=== PATIENT | male | born 1960 | race African-American/Black ===

== ENCOUNTER 2020-04-05 12:16 | Emergency (ER) | payer SELFPAY ==
[2020-04-05 12:31] VITALS: BP 151/85; PULSE 69; RESP 18; TEMP 36.4; O2SAT 100; BMI 22.2
--- NOTE | 2020-04-05 12:34 | W.ED.DIZZY ---
HPI - Dizziness General: Chief Complaint: General Medical Stated Complaint: possible heat stroke Time Seen by Provider: 04/05/20 12:31 Source: patient Mode of arrival: ambulatory Limitations: no limitations History of Present Illness: HPI Narrative: 59-year-old male who states he has been outside working all week weed eating. He states he feels like he got overheated. He states that he has had muscle aches and weakness and dizziness over the last 2 days. He denies any vomiting. He denies any worsening or improving factors. Associated symptoms: Denies chest pain, chills, headache(s), nausea or vomiting Review of Systems Const: Denies: fever(s), chills, body aches or change in appetite Eyes: Denies: blurry vision or eye discomfort ENMT: Denies: throat pain or dental pain Card: Denies: chest pain Resp: Denies: dyspnea GI: Denies: abdominal pain, nausea, vomiting or diarrhea : Denies: dysuria Musc: Reports: joint pain Skin/Breast: Denies: rash Neuro: Denies: headache(s) Psych: Denies: depression Joaquín/Lymph: Denies: easy bruising All/Imm: Denies: urticaria Physical Exam Const: COMMON NORMALS: no acute distress, patient oriented x3 and healthy appearing HENMT: COMMON NORMALS: normocephalic and atraumatic HEAD & SCALP: normocephalic and atraumatic Eye: COMMON NORMALS: Equal, round and reactive pupils present and EOMs intact bilaterally PUPIL: Yes Equal, round and reactive pupils present Neck/C-Spine: COMMON NORMALS: full ROM and supple Chest: COMMONS NORMALS: normal inspection of the chest and normal palpation of entire chest wall Resp: COMMON NORMALS: normal respiratory effort, No retractions, No use of accessory muscles and clear to auscultation bilaterally AUSCULTATION: clear to auscultation bilaterally Cardio: COMMON NORMALS: regular rate, regular rhythm and No murmurs present (Cardio) RATE: regular rate RHYTHM: regular rhythm GI: COMMON NORMALS: Normal to inspection, nondistended, normoactive bowel sounds present, Soft to palpation, non-tender and no masses PALPATION: Yes Soft to palpation Extremity: COMMON NORMALS: normal to inspection and full ROM Neuro: COMMON NORMALS: patient oriented x3, moves all extremities and no focal motor deficits Psych: COMMON NORMALS: mental status grossly normal, Normal thought process present and cooperative THOUGHT PROCESS: Normal thought process present Skin: COMMON NORMALS: no rashes or lesions noted and no wounds GENERAL SKIN EXAM: no rashes or lesions noted MDM - Dizziness MDM Narrative: Medical decision making narrative: Patient presents here with heat exposure. When nurse went in to the patient's room and to start his IV he refused IV and refused blood draw. She try to explain to him that we had a treated with IV fluids. Patient got upset and left. I was unable to talk to him again before he left. Discharge Plan Discharge Patient Disposition: Home Clinical Impression: Heat exposure Condition: Stable Coding Level of Care Code ED Home Hospice Rn for Wesley You
== END 2020-04-05 13:03 | disposition left against medical advice (07) ==
PROVIDERS: Emergency Provider Emergency Medicine
DX: T67.9XXA Effect of heat and light, unspecified, initial encounter (principal)
CPT/HCPCS: 12345; 96360; 99281; 99283

== ENCOUNTER 2020-07-25 18:18 | Emergency (ER) | payer SELFPAY ==
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
[2020-07-25 18:28] VITALS: BP 150/90; PULSE 83; RESP 14; TEMP 36.3; O2SAT 97; BMI 23.8
[2020-07-25 18:40] LABS: Basophils % 0.3 %; Eosinophils # 0.1 10^3/uL (0.0-0.8); Eosinophils % 0.6 %; Hematocrit 41.3 % (42.0-52.0); Hemoglobin 13.1 g/dL (11.7-16.6); Lymphocytes # 1.4 10^3/uL (0.8-4.8); Lymphocytes % 17.5 %; Mean Corpuscular HGB Conc 31.7 g/dL (30.0-36.0); Mean Corpuscular Hemoglobin 28.6 pg (28.0-34.0); Mean Corpuscular Volume 90.2 fL (80-94); Mean Platelet Volume 11.5 fL (7.4-10.4); Monocytes # 0.8 10^3/uL (0.2-0.9); Monocytes % 9.8 %; Neutrophils # 5.52 10^3/uL (1.8-7.7); Neutrophils % 71.3 %; Nucleated Red Blood Cells % 0 %; Platelet Count 193 10^3/cmm (130-400); Red Blood Count 4.58 10^6/uL (4.1-5.3); Red Cell Distribution Width 14.8 % (12.1-15.1); White Blood Count 7.8 10^3/uL (4.0-10.0)
[2020-07-25] MEDS: sodium chloride 0.9% 1,000 ML 999 ML IV (18:47)
[2020-07-25] MEDS: ondansetron 2 mg/ML SDV 2 mL 4 MG IVP (18:49)
[2020-07-25 18:50] VITALS: RESP 20; O2SAT 97
[2020-07-25] MEDS: HYDROmorphone 1 mg/mL INJ 1 mL IVP (18:50)
[2020-07-25 18:55] LABS: INR 0.94 (0.8-1.2)
[2020-07-25 18:59] LABS: Anion Gap 13.5 (5-19); Blood Urea Nitrogen 12 mg/dL (8-23); Carbon Dioxide 26 mmol/L (22-29); Chloride 104 mmol/L (98-107); Glomerular Filtration Rate 104.2 mL/min (90-130); Glucose 151 mg/dL (65-115); Osmolality Calculated 293 mOsm/kg (285-295); Potassium 3.5 mmol/L (3.5-5.1); Sodium 140 mmol/L (136-145)
[2020-07-25 19:05] LABS: Alcohol Level < 10 mg/dL (0-10)
[2020-07-25] MEDS: iohexol 300 mg/mL 100 mL Btl IV (19:37)
[2020-07-25 20:20] VITALS: BP 148/107; PULSE 79; RESP 18; O2SAT 96
[2020-07-25 21:29] VITALS: RESP 18; O2SAT 98
[2020-07-25] MEDS: morphine 4 mg/mL SDV 1 mL IVP (21:29)
[2020-07-25 21:55] VITALS: BP 150/91; PULSE 87; O2SAT 99
--- NOTE | 2020-07-26 11:12 | DCPLANNER ---
manager emergency department had message to schedule a follow up appointment for patient with ortho. manager emergency department called the ortho clinic, spoke with Concepcion, gave clinic patients information. manager emergency department was told that patients information would be printed and reviewed. Clinic will call patient with appointment information.
--- NOTE | 2020-07-28 09:56 | DCPLANNER ---
Patient has a follow up appointment scheduled with ortho on Monday, August 03, 2020 at 1:30. Clinic will call patient with appointment information.
--- NOTE | 2020-08-10 15:21 | DCPLANNER ---
Patient had a follow up appointment scheduled for 08.03.20 with ortho - appointment was cancelled
== END 2020-07-25 21:55 | disposition home or self-care (01) ==
PROVIDERS: Emergency Provider Emergency Medicine
DX: S13.4XXA Sprain of ligaments of cervical spine, initial encounter (principal); V89.2XXA Person injured in unspecified motor-vehicle accident, traffic, initial encounter
CPT/HCPCS: 12345; 70450; 71260; 72125; 72128; 72131; 74177; 80048; 80307; 85025; 85610; 96361; 96374; 96375; 96376; 99282; J1170; J2270; J2405; J7030; Q9967

== ENCOUNTER 2020-07-29 05:53 | Emergency (ER) | payer SELFPAY ==
[2020-07-29] VITALS (8 sets, daily range): BP systolic 101–124; BP diastolic 72–77; PULSE 69–112; RESP 14–20; TEMP 36.7; O2SAT 97–100; BMI 24.2
--- NOTE | 2020-07-29 06:04 | PC.NURSE ---
EKG done at 0604 and shown to ER doctor
--- NOTE | 2020-07-29 06:07 | XR_ITS ---
WS: [id number] Portable AP upright chest, 07/29/2020 Clinical Data: CP Comparison: Portable chest, 06/14/2018. Findings: No nodules, masses or effusions are seen. The heart is normal. The pulmonary vascularity is not increased. No pneumonia or pneumothorax is seen. The aortic arch and descending aorta are tortuo us. Monitor leads are on the chest wall. XR/XR chest 1V portable [id number] Impression: Atherosclerosis.
--- NOTE | 2020-07-29 06:07 | ECG_ITS ---
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 Measurements Intervals [place] Rate: 90 P: 67 NJ: 116 QRS: 39 QRSD: 86 T: -28 QT: 350 QTc: 430 Interpretive Statements SINUS RHYTHM WITH SHORT [place] INTERVAL NONSPECIFIC T-WAVE ABNORMALITY Compared to ECG 06/14/2018 08:16:32 No significant changes Electronically Signed On 07-29-2020 17:20:24 DIRECTOR OF STRATEGIC SOURCING by Kraig Aviles M.D. [email or web address] [facility] [place] [facility].[employer]/store/NU/[id number] f
[2020-07-29] MEDS: morphine 4 mg/mL SDV 1 mL IVP (06:14)
[2020-07-29 06:15] LABS: Basophils % 0.2 %; Eosinophils # 0.1 10^3/uL (0.0-0.8); Eosinophils % 0.6 %; Hematocrit 42.7 % (42.0-52.0); Hemoglobin 13.9 g/dL (11.7-16.6); Lymphocytes # 1.3 10^3/uL (0.8-4.8); Lymphocytes % 14.1 %; Mean Corpuscular HGB Conc 32.6 g/dL (30.0-36.0); Mean Corpuscular Hemoglobin 28.3 pg (28.0-34.0); Mean Corpuscular Volume 86.8 fL (80-94); Mean Platelet Volume 11.6 fL (7.4-10.4); Monocytes # 0.9 10^3/uL (0.2-0.9); Monocytes % 9.7 %; Neutrophils # 6.78 10^3/uL (1.8-7.7); Neutrophils % 74.7 %; Nucleated Red Blood Cells % 0 %; Platelet Count 259 10^3/cmm (130-400); Red Blood Count 4.92 10^6/uL (4.1-5.3); Red Cell Distribution Width 14.3 % (12.1-15.1); White Blood Count 9.1 10^3/uL (4.0-10.0)
[2020-07-29] MEDS: ondansetron 2 mg/ML SDV 2 mL 4 MG IVP (06:15)
--- NOTE | 2020-07-29 06:21 | PC.NURSE ---
0600 notes placed by Annmarie Cain error wrong chart
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
[2020-07-29 06:25] LABS: INR 0.89 (0.8-1.2); Partial Thromboplastin Time 36.4 SECONDS (23.9-36.7)
[2020-07-29 06:37] LABS: Troponin(5th) Baseline 6 ng/L (0-15)
[2020-07-29 06:45] LABS: Alanine Aminotransferase 76 U/L (0-41); Albumin Level 4.2 g/dL (3.5-5.2); Alkaline Phosphatase 120 IU/L (40-130); Blood Urea Nitrogen 17 mg/dL (8-23); Calcium 9.7 mg/dL (8.5-10.5); Carbon Dioxide 30 mmol/L (22-29); Chloride 98 mmol/L (98-107); Creatinine Clr Calc Pharmacy 90.9661; Globulin 2.6 g/dL (1.3-4.6); Glomerular Filtration Rate 119.3 mL/min (90-130); Glucose 105 mg/dL (65-115); NT Pro B Type Natriuretic Pept 54 pg/mL (0-125); Osmolality Calculated 290 mOsm/kg (285-295); Sodium 139 mmol/L (136-145); Total Bilirubin 0.2 mg/dL (0.15-1.2); Total Protein 6.8 g/dL (6.6-8.7)
[2020-07-29 06:53] LABS: Anion Gap 15.7 (5-19); Aspartate Amino Transferase 70 U/L (0-40); Potassium 4.7 mmol/L (3.5-5.1)
--- NOTE | 2020-07-29 08:07 | ECG_ITS ---
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 Measurements Intervals [place] Rate: 83 P: 70 NJ: 112 QRS: 47 QRSD: 85 T: 20 QT: 362 QTc: 426 Interpretive Statements SINUS RHYTHM WITH SHORT [place] INTERVAL Left ventricular hypertrophy NONSPECIFIC T-WAVE ABNORMALITY Compared to ECG 07/29/2020 06:02:08 No significant changes Electronically Signed On 07-29-2020 17:37:09 GATE MANAGER by Kraig Aviles M.D. [email or web address]/store/[id number] f
[2020-07-29 08:49] LABS: Troponin 5 2HR Delta 0 ABS# (0-10)
== END 2020-07-29 09:02 | disposition home or self-care (01) ==
PROVIDERS: Emergency Provider Emergency Medicine
DX: R07.89 Other chest pain (principal)
CPT/HCPCS: 12345; 71045; 80053; 83880; 84484; 85025; 85610; 85730; 93005; 96374; 96375; 99283; 99284; J2270; J2405